=== PATIENT | male | born 1950 | race Caucasian/White ===

== ENCOUNTER 2017-05-24 06:51 | Day surgery (SDC) | payer MEDICARE ==
[2017-05-24] MEDS ORDERED: Midazolam 1 MG/ML 2 ML SDV ONE (07:30)
[2017-05-24] MEDS ORDERED: fentaNYL 100 MCG/2 ML SDV ONE (07:30)
[2017-05-24] MEDS ORDERED: Lactated Ringers 1,000 ML IV SCH (07:30)
[2017-05-24] MEDS ORDERED: Propofol 200 MG/20 ML SDV ONE (07:30)
[2017-05-24 09:51] VITALS: BP 126/83
--- NOTE | 2017-05-25 07:26 | OR ---
DATE OF PROCEDURE: 05/24/2017 PREOPERATIVE DIAGNOSIS: History of tubular adenomas. POSTOPERATIVE DIAGNOSES: Diverticulosis, two small rectal polyps adjacent to each other, history of tubular adenomas. PROCEDURE PERFORMED: Colonoscopy to the cecum with biopsy resection of two small distal rectal polyps adjacent to each other, sent to the laboratory as one specimen. SURGEON: Aroldo Crocker MD. ANESTHESIA: IV anesthesia with monitored anesthesia care. INDICATIONS: This 67-year-old white male is referred for a colonoscopy because of a history of adenomatous polyps. The last one removed was a tubular adenoma. I counseled him for the procedure including risks and alternatives, and he gave his informed consent to proceed. DESCRIPTION OF PROCEDURE: The patient was placed in the left lateral decubitus position. IV anesthesia was administered by the Anesthesia Service. Time-out was held. A rectal exam was performed, which was unremarkable. The flexible video Olympus colonoscope was introduced through his anus, up his rectum, and out his colon all the way to the cecum. En route, we saw multiple left-sided diverticula. There was no bleeding or inflammation associated with any of them. Once the cecum was reached, the scope was slowly withdrawn, examining the mucosa throughout. No additional mucosal abnormalities were noted until we reached the distal rectum. Here, we saw two small polyps adjacent to each other. They were removed with the biopsy forceps and sent to the laboratory as one specimen. The scope was retroflexed in the rectum with the distal rectum otherwise appearing unremarkable. The scope was straightened and removed. He tolerated the procedure well. Aroldo Crocker MD /[id number] MTDFrancois
== END 2017-05-24 10:15 | disposition home or self-care (01) ==
LOC: JP.SDS 06:51
PROVIDERS: ATTEND Surgery
DX: Z12.11 Encounter for screening for malignant neoplasm of colon (principal); K62.1 Rectal polyp; K57.30 Diverticulosis of large intestine without perforation or abscess without bleeding; I10 Essential (primary) hypertension; J44.9 Chronic obstructive pulmonary disease, unspecified; E78.00 Pure hypercholesterolemia, unspecified; Z85.038 Personal history of other malignant neoplasm of large intestine; Z91.030 Bee allergy status; F17.210 Nicotine dependence, cigarettes, uncomplicated; Z98.890 Other specified postprocedural states
CPT/HCPCS: 45380; 88305; J2250; J2704; J3010; J7120

== ENCOUNTER 2018-09-04 08:01 | Emergency (ER) | payer MEDICARE ==
[2018-09-04 08:21] VITALS: BP 178/108
--- NOTE | 2018-09-04 08:34 | EDM.PDOC ---
ED HPI GENERAL MEDICAL PROBLEM - General Chief Complaint: Neuro Symptoms/Deficits Stated Complaint: VIA [facility] Time Seen by Provider: 09/04/18 08:29 Source of Information: Reports: Patient History Limitations: Reports: No Limitations - History of Present Illness INITIAL COMMENTS - FREE TEXT/NARRATIVE: pt arrived with inability to move his rt arm and his rt leg. His speech is slurred and he has facial deviation. He is saying what he needs to but his speech is slurred. Onset: Sudden, Other ( started at 7 thirty. ) Duration: Minutes: Location: Reports: Head Associated Symptoms: Reports: No Other Symptoms Denies Pain Score (Numeric/FACES): 0 - Related Data Allergies Allergy/AdvReac Type Severity Reaction Status Date / Time bee venom protein (honey bee) Allergy Swelling Verified 09/04/18 08:21 Home Meds: Home Meds Aspirin 325 mg PO DAILY 03/28/14 [History] Simvastatin [Zocor] 40 mg PO DAILY 03/28/14 [History] Ibuprofen 400 mg PO DAILY PRN 05/21/17 [History] Zolpidem Tartrate [Ambien] 5 mg PO BEDTIME 05/21/17 [History] Past Medical History HEENT History: Reports: None Cardiovascular History: Reports: High Cholesterol, Hypertension Respiratory History: Reports: COPD Gastrointestinal History: Reports: Colon Polyp Genitourinary History: Reports: None Musculoskeletal History: Reports: Fracture Other Musculoskeletal History: right leg right knee Neurological History: Reports: None, CVA Other Neuro History: CVA 2012 Psychiatric History: Reports: PTSD Endocrine/Metabolic History: Reports: None Hematologic History: Reports: None Immunologic History: Reports: None Oncologic (Cancer) History: Reports: None Dermatologic History: Reports: None - Infectious Disease History Infectious Disease History: Reports: Chicken Pox, Measles, Mumps - Past Surgical History Head Surgeries/Procedures: Reports: None HEENT Surgical History: Reports: Tonsillectomy Cardiovascular Surgical History: Reports: None Respiratory Surgical History: Reports: None GI Surgical History: Reports: Colonoscopy Male Surgical History: Reports: Other (See Below) Other Male Surgeries/Procedures: hydrocele repair Endocrine Surgical History: Reports: None Neurological Surgical History: Reports: None Musculoskeletal Surgical History: Reports: None Dermatological Surgical History: Reports: Other (See Below) Social & Family History - Family History Family Medical History: Noncontributory - Caffeine Use Caffeine Use: Reports: Coffee ED ROS GENERAL - Review of Systems Review Of Systems: See Below Constitutional: Reports: No Symptoms HEENT: Reports: No Symptoms Respiratory: Reports: No Symptoms Cardiovascular: Reports: No Symptoms Endocrine: Reports: No Symptoms GI/Abdominal: Reports: No Symptoms : Reports: No Symptoms Musculoskeletal: Reports: No Symptoms Skin: Reports: No Symptoms Neurological: Reports: Trouble Speaking, Difficulty Walking, Weakness, Change in Speech ED EXAM, NEURO - Physical Exam Exam: See Below Text/Narrative:: pt woke up with normal speech. He was sitting on the edge of the bed and appeared normal. He went to stand up about 7 thirty and he fell and ended up with a abrasion on the rt side. The ambulance was called and he could not be flown so he was transported here. He had no movement of his rt arm or rt leg. He is not on blood thinners. He had a previos stroke about 6 years ago Exam Limited By: No Limitations General Appearance: Alert, Anxious, Mild Distress, Other (pupils equal and reactive. ) Ears: Normal TMs Nose: Normal Inspection Throat/Mouth: Normal Inspection Head Exam: Atraumatic Neck: Normal Inspection Respiratory/Chest: No Respiratory Distress Cardiovascular: Regular Rate, Rhythm GI/Abdominal: Soft, Non-Tender (Male) Exam: Deferred Rectal (Males) Exam: Deferred Neurological: Alert, Oriented x 3, Other (pt is not able to move his rt arm and rt leg. He has facial deviation and slurred speech. This started at 7 thirty. ) Back Exam: Normal Inspection Extremities: Other (hemiparisis on the rt. ) Course - Vital Signs Last Recorded V/S: Last Vital Signs Temp 36.3 C 09/04/18 08:20 Pulse 73 09/04/18 08:20 Resp 17 09/04/18 08:20 BP 178/108 H 09/04/18 08:20 Pulse Ox 97 09/04/18 08:20 - Orders/Labs/Meds Labs: Laboratory Tests 09/04/18 09/04/18 09/04/18 Range/Units 08:09 08:14 08:14 WBC 5.6 (4.5-11.0) K/uL RBC 5.29 (4.30-5.90) M/uL Hgb 17.2 H (12.0-15.0) g/dL Hct 48.3 (40.0-54.0) % MCV 91 (80-98) fL MCH 33 H (27-31) pg MCHC 36 (32-36) % Plt Count 143 L (150-400) K/uL Neut % (Auto) 52 (36-66) % Lymph % (Auto) 34 (24-44) % [place] % (Auto) 9 H (2-6) % Eos % (Auto) 4 (2-4) % Baso % (Auto) 1 (0-1) % PT 10.8 (9.5-12.0) sec INR 0.98 (0.80-1.20) APTT 26.6 L (27.0-36.0) sec Sodium 143 (140-148) mmol/L Potassium 4.0 (3.6-5.2) mmol/L Chloride 106 (100-108) mmol/L Carbon Dioxide 23 (21-32) mmol/L Anion Gap 14.2 H (5.0-14.0) mmol/L BUN 19 H (7-18) mg/dL Creatinine 0.8 (0.8-1.3) mg/dL Est Cr Clr Drug Dosing 104.16 mL/min Estimated GFR (MDRD) > 60 (>60) Glucose 94 (74-106) mg/dL Calcium 9.1 (8.5-10.1) mg/dL Total Bilirubin 0.7 (0.2-1.0) mg/dL AST 36 (15-37) U/L ALT 33 (12-78) U/L Alkaline Phosphatase 73 (46-116) U/L Total Protein 7.4 (6.4-8.2) g/dL Albumin 3.9 (3.4-5.0) g/dL Globulin 3.5 (2.3-3.5) g/dL Albumin/Globulin Ratio 1.1 L (1.2-2.2) Meds: Medications Discontinued Medications Generic Name Dose Route Start Last Admin Trade Name Immanuel PRN Reason Stop Dose Admin Alteplase, Recombinant Confirm 09/04/18 08:23 09/04/18 08:42 Activase Administered 09/04/18 08:24 Not Given Dose 100 mg .ROUTE .STK-MED ONE Alteplase, Recombinant 8.5 mg 09/04/18 08:45 09/04/18 08:30 Activase IVPUSH 09/04/18 08:46 8.5 mg ONETIME ONE Administration Alteplase, Recombinant 76.5 mg 76.5 mls @ 76.5 mls/hr 09/04/18 08:50 08:40 / Premix IV 09/04/18 09:49 76.5 mls/hr ONETIME ONE Administration - Re-Assessments/Exams Free Text/Narrative Re-Assessment/Exam: 09/04/18 08:40 stroke neurology was contacted at [facility]. It was recccommended that he have TPA. He had no contrindications so his bolus was given and the drip will be started. His bp is 170/100. His ekg shows a normal sinus rhythm. His cat scan of the head showed no acute findings. TPA was given. He had a 8.5 mg bolus given and a drip was started. . 09/06/18 19:14 Departure - Departure Time of Disposition: 08:43 Disposition: DC/Tfer to Acute Hospital 02 Condition: Fair Clinical Impression: CVA (cerebral vascular accident), Tissue plasminogen activator (tPA) administered at other facility within 24 hours before current admission, Hypertension - Discharge Information Referrals: PCP,None [Primary Care Provider] - Forms: ED Department Discharge Care Plan Goals: transfer to Stroke Team [facility] Critical Care Note - Critical Care Note Total Time (mins): 45 Comments: pt arrived with a hemiparis on the rt. His speech was slurred and he had facial deviation. neurology in [facility] was contacted and it was reccommended that he have Tpa/ This was given per protocol.
[2018-09-04] MEDS ORDERED: ALTEPLASE IV ONE (08:50)
== END 2018-09-04 08:53 ==
LOC: JP.ED 08:01
DX: I63.9 Cerebral infarction, unspecified (principal); I10 Essential (primary) hypertension; Z92.82 Status post administration of tPA (rtPA) in a different facility within the last 24 hours prior to admission to current facility; Z91.030 Bee allergy status; Z79.82 Long term (current) use of aspirin; Z79.899 Other long term (current) drug therapy
CPT/HCPCS: 36415; 70450; 80053; 85025; 85610; 85730; 93005; 96374; 99285; J2997

== ENCOUNTER 2022-05-30 16:20 | Emergency (ER) | payer MEDICARE ==
[2022-05-30] MEDS: Sodium Chloride 0.9% 10 ML Syringe FLUSH PRN (17:03)
[2022-05-30] MEDS: diphenhydrAMINE 50 MG/ML SDV IVPUSH ONE (17:03)
[2022-05-30] MEDS: methylPREDNISolone Sodium Succinate 125 MG/2 ML SDV IVPUSH ONE (17:05)
[2022-05-30] MEDS: Famotidine 20 MG/2 ML SDV IVPUSH ONE (17:06)
[2022-05-30 19:38] VITALS: BP 122/86; PULSE 91
== END 2022-05-30 20:29 | disposition home or self-care (01) ==
LOC: JP.ED 16:20
DX: T78.3XXA Angioneurotic edema, initial encounter (principal); J44.9 Chronic obstructive pulmonary disease, unspecified; E78.00 Pure hypercholesterolemia, unspecified; I10 Essential (primary) hypertension; Z86.73 Personal history of transient ischemic attack (TIA), and cerebral infarction without residual deficits; Z79.82 Long term (current) use of aspirin; Z79.899 Other long term (current) drug therapy; Z87.891 Personal history of nicotine dependence
CPT/HCPCS: 36430; 86161; 86900; 86901; 96374; 96375; 99283; 99283-25; J1200; J2930; J3490; P9017

== ENCOUNTER 2024-04-29 03:54 | Emergency (ER) | payer OTHER, MEDICARE ==
[2024-04-29 04:36] LABS: BASOPHILS ABSOLUTE AUTO 0.03 K/uL (0.00-0.10); BASOPHILS PERCENT AUTO 0.6 % (0.1-1.3); EOSINOPHILS ABSOLUTE AUTO 0.07 K/uL (0.00-0.40); EOSINOPHILS PERCENT AUTO 1.4 % (0.0-5.4); HEMATOCRIT 38.8 % (38.4-49.7); HEMOGLOBIN 13.5 g/dL (12.9-16.9); IMMATURE GRAN PERCENT AUTO 0.4 % (0.0-0.7); LYMPHOCYTES ABSOLUTE AUTO 0.75 K/uL (0.8-3.3); LYMPHOCYTES PERCENT AUTO 15.1 % (11.4-47.7); MEAN CORPUSCULAR HEMOGLOBIN 29.7 pg (31.6-35.5); MEAN CORPUSCULAR HGB CONC 34.8 g/dL (31.6-35.5); MEAN CORPUSCULAR VOLUME 85.5 fL (81.4-99.0); MONOCYTES ABSOLUTE AUTO 0.39 K/uL (0.20-0.90); MONOCYTES PERCENT AUTO 7.8 % (3.3-12.6); NEUTROPHILS ABSOLUTE AUTO 3.71 K/uL (1.0-7.6); NEUTROPHILS PERCENT AUTO 74.7 % (40.0-78.1); PLATELET COUNT,PLT 125 K/uL (130-375); RED BLOOD CELL COUNT 4.54 M/uL (4.14-5.76)
[2024-04-29 04:39] LABS: BLOOD UREA NITROGEN,BUN 25 mg/dL (7-18); CALCIUM 9.1 mg/dL (8.5-10.1); CARBON DIOXIDE,CO2 27 mmol/L (21-32); CHLORIDE,CL 102 mmol/L (100-108); CREATININE 1.3 mg/dL (0.8-1.3); ESTIMATED GFR 57 mL/min (>60); GLUCOSE RANDOM 142 mg/dL (74-106); POTASSIUM,K 3.8 mmol/L (3.6-5.2); SODIUM,NA 137 mmol/L (140-148)
[2024-04-29 04:40] LABS: ANION GAP 11.8 mmol/L (5.0-14.0); IMMATURE GRAN ABSOLUTE AUTO 0.02 K/uL (0.00-0.23)
[2024-04-29 04:54] VITALS: PULSE 69
[2024-04-29] MEDS: LORazepam 2 MG/ML SDV IVPUSH ONE (05:06)
[2024-04-29] MEDS: Iopamidol 755 Mg/ML 100 ML Bottle IV STA (05:34)
[2024-04-29] MEDS: Sodium Chloride 0.9% 100 ML IV STA (05:34)
[2024-04-29 06:57] VITALS: BP 101/50
== END 2024-04-29 07:58 | disposition home or self-care (01) ==
LOC: JP.ED 03:54
DX: G45.9 Transient cerebral ischemic attack, unspecified (principal); I10 Essential (primary) hypertension; E78.5 Hyperlipidemia, unspecified; J44.9 Chronic obstructive pulmonary disease, unspecified; Z91.030 Bee allergy status; Z88.8 Allergy status to other drugs, medicaments and biological substances; Z79.82 Long term (current) use of aspirin; Z79.899 Other long term (current) drug therapy
CPT/HCPCS: 36415; 70450; 70498; 80048; 85025; 93005; 93010; 96374; 99285; J2060; J3490; Q9967; 70496

== ENCOUNTER 2024-07-02 22:13 | Emergency (ER) | payer OTHER, MEDICARE ==
[2024-07-02 22:36] VITALS: BP 92/62; PULSE 75
== END 2024-07-02 23:06 | disposition home or self-care (01) ==
LOC: JP.ED 22:13
DX: T85.698A Other mechanical complication of other specified internal prosthetic devices, implants and grafts, initial encounter (principal); E78.00 Pure hypercholesterolemia, unspecified; I10 Essential (primary) hypertension; J44.9 Chronic obstructive pulmonary disease, unspecified; Z86.73 Personal history of transient ischemic attack (TIA), and cerebral infarction without residual deficits; Z79.82 Long term (current) use of aspirin; Z79.899 Other long term (current) drug therapy; Z91.030 Bee allergy status; Z88.8 Allergy status to other drugs, medicaments and biological substances
CPT/HCPCS: 99283

== ENCOUNTER 2025-06-15 06:10 | Day surgery (SDC) | payer MEDICARE, OTHER ==
[2025-06-15] MEDS: Lactated Ringers 1,000 ML IV SCH (06:59)
[2025-06-15] MEDS ORDERED: Propofol 200 MG/20 ML SDV ONE ×2 (07:08→08:07)
[2025-06-15] MEDS ORDERED: fentaNYL 50 MCG/ML SDV ONE (07:08)
[2025-06-15 08:57] VITALS: BP 123/77; PULSE 63
== END 2025-06-15 09:05 | disposition home or self-care (01) ==
LOC: JP.SDS 06:10
PROVIDERS: ATTEND Surgery
DX: Z12.11 Encounter for screening for malignant neoplasm of colon (principal); D12.3 Benign neoplasm of transverse colon; D12.4 Benign neoplasm of descending colon; D12.5 Benign neoplasm of sigmoid colon; K57.30 Diverticulosis of large intestine without perforation or abscess without bleeding; E78.00 Pure hypercholesterolemia, unspecified; I10 Essential (primary) hypertension; Z88.8 Allergy status to other drugs, medicaments and biological substances; Z79.01 Long term (current) use of anticoagulants; Z79.82 Long term (current) use of aspirin; Z87.891 Personal history of nicotine dependence; Z79.899 Other long term (current) drug therapy; Z91.030 Bee allergy status; Z86.0100 Personal history of colon polyps, unspecified
CPT/HCPCS: 00811; 45385; J2704; J3010; J7120

== ENCOUNTER 2025-07-04 18:18 | Emergency (ER) | payer OTHER, MEDICARE ==
[2025-07-04 19:35] LABS: BASOPHILS ABSOLUTE AUTO 0.02 K/uL (0.00-0.10); BASOPHILS PERCENT AUTO 0.2 % (0.1-1.3); EOSINOPHILS ABSOLUTE AUTO 0.08 K/uL (0.00-0.40); EOSINOPHILS PERCENT AUTO 0.8 % (0.0-5.4); IMMATURE GRAN ABSOLUTE AUTO 0.09 K/uL (0.00-0.23); IMMATURE GRAN PERCENT AUTO 0.9 % (0.0-0.7); LYMPHOCYTES ABSOLUTE AUTO 0.91 K/uL (0.8-3.3); LYMPHOCYTES PERCENT AUTO 8.7 % (11.4-47.7); MONOCYTES ABSOLUTE AUTO 0.94 K/uL (0.20-0.90); MONOCYTES PERCENT AUTO 9.0 % (3.3-12.6); NEUTROPHILS ABSOLUTE AUTO 8.43 K/uL (1.0-7.6); NEUTROPHILS PERCENT AUTO 80.4 % (40.0-78.1); PLATELET COUNT,PLT 141 K/uL (130-375); RED BLOOD CELL COUNT 4.17 M/uL (4.14-5.76); WHITE BLOOD CELL COUNT,WBC 10.5 K/uL (3.2-11.0)
[2025-07-04 19:48] LABS: BLOOD UREA NITROGEN,BUN 28.0 mg/dL (7-18); CARBON DIOXIDE,CO2 33.0 mmol/L (21-32); CHLORIDE,CL 103.0 mmol/L (100-108); CREATININE 1.1 mg/dL (0.8-1.3); EST CRCL DRUG DOSING (CG) 62.38 mL/min; ESTIMATED GFR 70.0 mL/min (>60); GLUCOSE RANDOM 101.0 mg/dL (74-106); POTASSIUM,K 4.3 mmol/L (3.6-5.2); SODIUM,NA 141.0 mmol/L (140-148)
[2025-07-04 20:07] VITALS: BP 96/58; PULSE 54
== END 2025-07-04 20:09 | disposition home or self-care (01) ==
LOC: JP.ED 18:18
DX: R11.2 Nausea with vomiting, unspecified (principal); R10.10 Upper abdominal pain, unspecified; I10 Essential (primary) hypertension; E78.00 Pure hypercholesterolemia, unspecified; J44.9 Chronic obstructive pulmonary disease, unspecified; Z86.73 Personal history of transient ischemic attack (TIA), and cerebral infarction without residual deficits; Z87.891 Personal history of nicotine dependence; Z91.030 Bee allergy status; Z88.8 Allergy status to other drugs, medicaments and biological substances; Z79.899 Other long term (current) drug therapy; Z79.82 Long term (current) use of aspirin
CPT/HCPCS: 36415; 80048; 83690; 85025; 99283; 99284

== ENCOUNTER 2025-07-05 09:43 | Emergency (ER) | payer OTHER, MEDICARE ==
[2025-07-05 10:34] VITALS: BP 121/68; PULSE 58
[2025-07-05] MEDS: Na Phos,M-B/Na Phos,DI-B 60 ML, Mineral Oil 50 ML, Docusate Sodium 400 MG, Magnesium Ci... RECTAL ONE (12:58)
== END 2025-07-05 13:12 | disposition home or self-care (01) ==
LOC: JP.ED 09:43
DX: K59.02 Outlet dysfunction constipation (principal); R33.9 Retention of urine, unspecified; I10 Essential (primary) hypertension; E78.00 Pure hypercholesterolemia, unspecified; J44.9 Chronic obstructive pulmonary disease, unspecified; Z87.891 Personal history of nicotine dependence; Z88.8 Allergy status to other drugs, medicaments and biological substances; Z91.030 Bee allergy status; Z79.01 Long term (current) use of anticoagulants; Z79.82 Long term (current) use of aspirin; Z79.899 Other long term (current) drug therapy
CPT/HCPCS: 51702; 99283; A9270